=== PATIENT | male | born 1965 | race Caucasian/White ===

== ENCOUNTER 2017-08-27 17:42 | Emergency (ER) | payer BC ==
[2017-08-27 17:58] VITALS: BP 139/76
--- NOTE | 2017-08-27 18:28 | UC ---
UC General HPI - HPI Summary HPI Summary: pt is c/o a 2 days hx of discomfort in his lower abdomen-pointing to his bladder. states maybe a little urinary discomfort as well. states had prostatitis once and this feels the same. denies risk/concern for std. denies fever, n/v/d. 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 - History of Current Complaint Chief Complaint: UCGU Stated Complaint: URINARY Time Seen by Provider: 08/27/17 18:14 Hx Obtained From: Patient Onset/Duration: Gradual Onset Timing: Constant Pain Intensity: 6 Aggravating: nothing Alleviating: nothing Associated Signs & Symptoms: Negative: Diarrhea, Fever, Vomiting - Allergy/Home Medications Allergies/Adverse Reactions: Allergies Allergy/AdvReac Type Severity Reaction Status Date / Time No Known Allergies Allergy Verified 08/27/17 17:53 PMH/Surg Hx/FS Hx/Imm Hx - Additional Past Medical History Additional PMH: prostatitis, uti, microscopic hematuria GI/ History: Diverticulitis - Surgical History Surgical History: None - Family History Known Family History: Negative: Diabetes - Social History Occupation: Employed Full-time Lives: With Family Alcohol Use: None Substance Use Type: None Smoking Status (MU): Never Smoked Tobacco - Immunization History Vaccination Up to Date: Yes Review of Systems Constitutional: Negative Skin: Negative Eyes: Negative ENT: Negative Respiratory: Negative Cardiovascular: Negative Gastrointestinal: Abdominal Pain Genitourinary: Dysuria, Frequency Motor: Negative Neurovascular: Negative Musculoskeletal: Negative Neurological: Negative Psychological: Negative Is Patient Immunocompromised?: No All Other Systems Reviewed And Are Negative: Yes Physical Exam Triage Information Reviewed: Yes Appearance: Well-Appearing Vital Signs: Initial Vital Signs Temp 98.5 F 08/27/17 17:53 Pulse 70 08/27/17 17:53 Resp 16 08/27/17 17:53 BP 139/76 08/27/17 17:53 Pulse Ox 99 08/27/17 17:53 Vital Signs Reviewed: Yes Eyes: Positive: Conjunctiva Clear ENT: Positive: Pharynx normal, TMs normal. Negative: Nasal congestion, Nasal drainage Neck: Positive: Supple, Nontender, No Lymphadenopathy Respiratory: Positive: Lungs clear, Normal breath sounds Cardiovascular: Positive: RRR, No Murmur Abdomen Description: Positive: Nontender, No Organomegaly, Soft, Other: - Rectal : no lesion. prostate feels boggy and pt notes is tender.. Negative: CVA Tenderness (R), CVA Tenderness (L), Distended, Guarding Bowel Sounds: Positive: Present Male Genital Exam: Positive: Normal Genitalia Musculoskeletal: Positive: ROM Intact Neurological: Positive: Alert Psychological: Positive: Age Appropriate Behavior Skin Exam: Normal Diagnostics - Laboratory Diagnostic Studies Completed/Ordered: u/a=trace, lsed blood. culture is pending. Course/Dx - Course Course Of Treatment: non toxic. no acute abdomen. u/a=trace blood with culture pending. exam c/w prostatitis. given hx same plus microscopic hematuria, will refer to urology and pcp for f/u. - Differential Dx - Multi-Symptom Provider Diagnoses: Prostatitis Discharge - Sign-Out/Discharge Documenting (check all that apply): Discharge/Admit/Transfer - Discharge Plan Condition: Stable Disposition: HOME Prescriptions: Ciprofloxacin TAB* [Cipro 500 MG TAB*] 500 mg PO BID 14 Days #28 tab Patient Education Materials: Prostatitis (ED) Referrals: Raulito Cruz DO [Primary Care Provider] - 2 Days Aliza Olivarez MD [Medical Doctor] - As Soon As Possible Additional Instructions: GO TO ER FOR ANY CHANGES OR WORSENING - Billing Disposition and Condition Condition: STABLE Disposition: HOME
== END 2017-08-27 18:37 | disposition home or self-care (01) ==
LOC: UCCORT 17:42
DX: N41.9 Inflammatory disease of prostate, unspecified (principal)
CPT/HCPCS: 81003; 87086; 99212; G0463